=== PATIENT | female | born 1985 | race Two or more races ===

== ENCOUNTER 2018-07-15 17:03 | Emergency (ER) | payer BC ==
--- NOTE | 2018-07-15 17:41 | PDOC ---
Rapid Medical Evaluation Time Seen by Provider: 07/15/18 17:36 Medical Evaluation: Allergies Allergy/AdvReac Type Severity Reaction Status Date / Time No Known Allergies Allergy Verified 07/15/18 17:36 07/15/18 17:36 Pt presents for intermittent chest pain since Thursday after a yoga class. Pt also reports light headedness and palpitations. States that the pain is substernal. States the pain radiates to the back and neck. Admits to nausea last night. Denies difficulty breathing, vomiting. Exam: RRR, Lungs CTAB Orders: Labs, IV insert, EKG, CXR Pt to proceed to the ED for further evaluation Discharge Disposition - Diagnosis Chest pain - Referrals - Patient Instructions - Post Discharge Activity
[2018-07-15 17:43] VITALS: BMI 20.7
--- NOTE | 2018-07-15 19:02 | PDOC ---
Attending Attestation - HPI HPI: 07/15/18 20:34 The patient is a 33 year old female with no significant past medical history who presents to the ER with chest pain today. Patient denies any recent illnesses. 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 Patient has no other complaints. The patient denies shortness of breath, headache, and dizziness. Denies fever, chills, nausea, vomit, diarrhea, and constipation. Denies dysuria, frequency, urgency, and hematuria. Allergies: NKA Past surgical history: None reported. Social history: Drinks daily. No reported drug or cigarette use. - Physicial Exam PE: 07/15/18 20:34 ADULT PHYSICAL EXAM Constitutional: Awake, alert, oriented. No acute distress. Head: Normocephalic. Atraumatic Eyes: PERRL. EOMI. Conjunctivae are not pale. ENT: Mucous membranes are moist and intact. Posterior pharynx without exudates or erythema. Uvula midline. Neck: Supple. Full ROM. No lymphadenopathy. Cardiovascular: Regular rate. Regular rhythm. S1, S2 regular. Distal pulses are 2+ and symmetric. Pulmonary/Chest: No evidence of respiratory distress. Clear to auscultation bilaterally No wheezing, rales or rhonchi. Abdominal: Soft and non-distended. There is no tenderness. No rebound, guarding or rigidity. No organomegaly. No palpable masses. Good bowel sounds. Back: No CVA tenderness. Musculoskeletal: No edema. No cyanosis. No clubbing. Full range of motion in all extremities. Nocalf tenderness. Radial/pedal pulses are intact and 2+ bilaterally Skin: Skin is warm and dry. No petechiae. No purpura. Neurological: Alert and oriented to person, place, and time. Cranial nerves II -XII are grossly intact. Normal speech. Strength is grossly symmetric. No sensory deficits. Psychiatric: Good eye contact. Normal interaction, affect and behavior. <Jina Luis - Last Filed: 07/15/18 20:34> - Resident Resident Name: Avtar Garcia - ED Attending Attestation I have performed the following: I have examined & evaluated the patient, The case was reviewed & discussed with the resident, I agree w/resident's findings & plan, Exceptions are as noted - Medical Decision Making 07/15/18 19:02 I, Dr. Chani Mckinley, DO, attest that this document has been prepared under my direction and personally reviewed by me in its entirety. I further attest, that it accurately reflects all work, treatment, procedures and medical decision -making performed by me. 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
--- NOTE | 2018-07-15 19:04 | PDOC ---
History of Present Illness - General Chief Complaint: Chest Pain Stated Complaint: PCP SENT/CHEST PAIN Time Seen by Provider: 07/15/18 17:36 - History of Present Illness Initial Comments: The patient is a 33F w/ no reported PMH who presents with intermittent, sharp, left sided chest pain that occasionally radiates to her neck for the last 5d. The patient denies ever having had this type of pain before. Denies fevers/ chills, SOB, abdominal pain, D/C, dysuria, or changes in sensation. 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 Denies hx of withdrawal symptoms Reports drinking a bottle and a half of wine last night. 07/15/18 19:48 Past History - Past Medical History Allergies/Adverse Reactions: Allergies Allergy/AdvReac Type Severity Reaction Status Date / Time No Known Allergies Allergy Verified 07/15/18 17:36 Home Medications: Ambulatory Orders Ranitidine [Zantac -] 150 mg PO DAILY 14 Days #14 tablet 07/15/18 COPD: No - Surgical History Appendectomy: Yes - Immunization History Immunization Up to Date: Yes - Suicide/Smoking/Psychosocial Hx Smoking History: Never smoked Number of Cigarettes Smoked Daily: 10 Information on smoking cessation initiated: No Review of Systems - Review of Systems Able to Perform ROS?: Yes Comments:: GENERAL/CONSTITUTIONAL: No fever or chills. No weakness HEAD, EYES, EARS, NOSE AND THROAT: No change in vision. No ear pain or discharge. No sore throat CARDIOVASCULAR: per HPI RESPIRATORY: No cough, wheezing, or hemoptysis GASTROINTESTINAL: No diarrhea or constipation GENITOURINARY: No dysuria, frequency, or change in urination MUSCULOSKELETAL: No joint or muscle swelling or pain. No neck or back pain SKIN: No rash NEUROLOGIC: No vertigo, loss of consciousness, or change in strength/sensation ENDOCRINE: No increased thirst. No abnormal weight change HEMATOLOGIC/LYMPHATIC: No anemia, easy bleeding, or history of blood clots ALLERGIC/IMMUNOLOGIC: No hives or skin allergy 07/15/18 19:02 *Physical Exam - Vital Signs Last Vital Signs Temp Pulse Resp BP Pulse Ox 98.4 F 65 18 122/75 100 07/15/18 17:37 07/15/18 17:37 07/15/18 17:37 07/15/18 17:37 07/15/18 17:37 - Physical Exam Comments: GENERAL: Awake, alert, and fully oriented, in no acute distress_ HEAD: No signs of trauma, normocephalic, atraumatic _ EYES: PERRLA, EOMI, sclera anicteric, conjunctiva clear_ ENT: Auricles normal inspection, hearing grossly normal, nares patent, oropharynx clear without exudates. Moist mucosa_ NECK: Normal ROM, supple, no lymphadenopathy, JVD, or masses_ LUNGS: No distress, speaks full sentences, clear to auscultation bilaterally _ HEART:Regular rate and rhythm, normal S1 and S2, no murmurs appreciated, peripheral pulses normal and equal bilaterally _ ABDOMEN: Soft, nontender, normoactive bowel sounds. No guarding, no rebound. No masses_ EXTREMITIES : Normal inspection, Normal range of motion, no edema. No clubbing or cyanosis. _ NEUROLOGICAL: Cranial nerves II through XII grossly intact. Normal speech, normal gait, no focal sensorimotor deficits _ SKIN: Warm, Dry, normal turgor, no rashes or lesions noted_ 07/15/18 19:03 ED Treatment Course - LABORATORY CBC & Chemistry Diagram: 07/15/18 18:15 07/15/18 20:00 Medical Decision Making - Medical Decision Making The patient is a 33F who presents w/ chest pain and dizziness ED Course CMP, CBC, UA/Upreg 07/15/18 22:37 No leukocytosis No evidence of UTI Patient given 1L NS Reglan 10mg IV GI cocktail given Head CT neg for pathology Trop I negative Lipase 100s Patient reports symptomatic improvement Plan for DC home w/ PCP f/u Patient in agreement with above plan and verbalized understanding. Return precautions also given Patient to f/u at [facility] All questions answered Rx of Zantac sent to patient's pharmacy Dispo: Home 07/16/18 06:56 *DC/Admit/Observation/Transfer Diagnosis at time of Disposition: Chest pain Qualifiers: Chest pain type: unspecified Qualified Code(s): R07.9 - Chest pain, unspecified - Discharge Dispostion Disposition: HOME Condition at time of disposition: Stable Decision to Admit order: No - Prescriptions Prescriptions: Ranitidine [Zantac -] 150 mg PO DAILY 14 Days #14 tablet - Referrals Referrals: [facility] [place] [facility] [place] [Provider Group] - Patient Instructions Printed Discharge Instructions: DI for Headache, DI for Chest Pain Additional Instructions: You were seen in the Emergency Department today for chest pain and headache. Please review the handouts provided at discharge. Please followup with your primary care physician. Return to the Emergency Department if you develop fever , worsening symptoms, or new concerning symptoms. - Post Discharge Activity
[2018-07-15 19:11] LABS: BASO % 0.5 % (0-2.0); EOS % 1.6 % (0-4.5); HEMATOCRIT 40.1 % (32.4-45.2); HEMOGLOBIN 13.9 GM/dL (10.7-15.3); LYMPH % 28.2 % (8-40); MCH 33.7 pg (25.7-33.7); MCHC 34.7 g/dl (32.0-36.0); MEAN PLT VOLUME 9.2 fl (7.5-11.1); MONO % 6.2 % (3.8-10.2); NEUT % 63.5 % (42.8-82.8); PLATELET COUNT 285 K/MM3 (134-434); RBC 4.14 M/mm3 (3.60-5.2); RDW 13.7 % (11.6-15.6); WHITE BLOOD COUNT 6.8 K/mm3 (4.0-10.0)
[2018-07-15] MEDS ORDERED: MAG HYDROX/AL HYDROX/SIMETH 30 ML UNIT-DOSE CUP PO ONE (19:39)
[2018-07-15] MEDS ORDERED: RANITIDINE HCL 150 MG TABLET (FP) PO ONE (19:39)
[2018-07-15] MEDS ORDERED: LIDOCAINE VISCOUS 2% ORAL/TOP 20 ML UNIT-DOSE CUP MM ONE (19:39)
[2018-07-15] MEDS ORDERED: FOLIC ACID 1 MG TABLET (FP) PO ONE (19:51)
[2018-07-15] MEDS ORDERED: THIAMINE HCL 100 MG TABLET (FP) PO ONE (19:51)
[2018-07-15] MEDS ORDERED: MULTIVITAMINS (DAILY MVI) TABLET (FP) PO ONE (19:52)
[2018-07-15] MEDS ORDERED: LIDOCAINE VISCOUS 2% ORAL/TOP 20 ML UNIT-DOSE CUP ONE (20:16)
[2018-07-15] MEDS ORDERED: RANITIDINE HCL 150 MG TABLET (FP) ONE (20:17)
[2018-07-15] MEDS ORDERED: FOLIC ACID 1 MG TABLET (FP) ONE (20:17)
[2018-07-15] MEDS ORDERED: MAG HYDROX/AL HYDROX/SIMETH 30 ML UNIT-DOSE CUP ONE (20:17)
[2018-07-15] MEDS ORDERED: SODIUM CHLORIDE 0.9% 500 ML INFUS.BAG IV ONE (20:33)
[2018-07-15 20:40] LABS: ALBUMIN 4.2 g/dl (3.4-5.0); ANION GAP 10 MMOL/L (8-16); BILIRUBIN,TOTAL 0.3 mg/dL (0.2-1.0); BLOOD UREA NITROGEN 11 mg/dL (7-18); CALCIUM 8.5 mg/dL (8.5-10.1); CHLORIDE 109 mmol/L (98-107); CO2 24 mmol/L (21-32); CREATININE 0.6 mg/dL (0.55-1.3); GLUCOSE,RANDOM 104 mg/dL (74-106); LIPASE 130 U/L (73-393); MAGNESIUM 2.5 mg/dL (1.8-2.4); POTASSIUM 3.9 mmol/L (3.5-5.1); SGOT/AST 19 U/L (15-37); SGPT/ALT 30 U/L (13-61); SODIUM 143 mmol/L (136-145); TOT PROT 7.2 g/dl (6.4-8.2)
[2018-07-15 20:41] LABS: ALK PHOS 58 U/L (45-117)
[2018-07-15] MEDS ORDERED: METOCLOPRAMIDE HCL INJECTION 10 MG/2 ML VIAL IVPUSH ONE (21:05)
[2018-07-15 21:22] LABS: INR 1.04 (0.83-1.09); PROTHROMBIN TIME (PATIENT) 11.7 SEC (9.7-13.0)
[2018-07-15] MEDS ORDERED: METOCLOPRAMIDE HCL INJECTION 10 MG/2 ML VIAL ONE (21:26)
[2018-07-15 23:34] VITALS: BP 109/73; PULSE 69; TEMP 98.2
--- NOTE | 2018-07-16 09:17 | EKG ---
Test Reason : Blood Pressure : / mmHG Vent. Rate : 069 BPM Atrial Rate : 069 BPM P-R Int : 134 ms QRS Dur : 074 ms QT Int : 356 ms P-R-T Axes : 028 087 067 degrees QTc Int : 381 ms NORMAL SINUS RHYTHM NORMAL ECG NO PREVIOUS ECGS AVAILABLE Confirmed by KELSI VENTURA MD ([id number]) on 07/16/2018 9:16:52 AM Referred By: Confirmed By:KELSI VENTURA MD
== END 2018-07-15 23:35 | disposition home or self-care (01) ==
LOC: JER 17:03
PROC: 3E033GC Introduction of Other Therapeutic Substance into Peripheral Vein, Percutaneous Approach (ICD-10-PCS; principal; 2018-07-15)
DX: R07.9 Chest pain, unspecified (principal)
CPT/HCPCS: 36415; 70450-TC; 80053; 82550; 83690; 83735; 84484; 85025; 85379; 85610; 85730; 93005; 93010; 99284-25